=== PATIENT | male | born 1950 | race Caucasian/White ===

== ENCOUNTER 2024-01-12 05:29 | Emergency (ER) | payer OTHER ==
[2024-01-12 05:56] LABS: Absolute Eosinophils 0.2 K/uL (0-0.5); Absolute Lymphocytes (CBC) 3.5 K/uL (0.7-4.9); Absolute Monocytes 0.8 K/uL (0.1-1.3); Absolute Neutrophil 3.1 K/uL (1.8-8.0); Basophils % 0.4 % (0-1.3); Eosinophils % 2.1 % (0-4.4); Hematocrit 47.2 % (39.6-49.0); Hemoglobin 16.2 g/dL (13.6-17.9); Lymphocytes % 46.4 % (15.3-44.8); MCH 29.6 pg (27.0-35.0); MCHC 34.4 g/dL (32.0-36.0); MCV 86.2 fL (80-100); Monocytes % 10.7 % (3.3-12.3); Neutrophils % 40.4 % (41.7-73.7); Nucleated Red Blood Cells % 0.2 % (0-0); PT Prothrombin Time 15.4 SECONDS (9.4-12.5); Platelets 147 thou/uL (152-406); Protime INR 1.39; RBC Red Blood Cell Count 5.47 M/uL (4.33-5.43); Red Cell Distribution Width 13.8 % (12.1-15.2)
[2024-01-12] MEDS ORDERED: NA CHLORIDE 0.9% 1,000 ML ONE (06:11)
[2024-01-12 06:19] LABS: Albumin/Globulin Ratio 1.1 (1.1-1.8); Anion Gap 7.5 mEq/L (5.0-15.0); Bilirubin Direct 0.2 mg/dL (0-0.2); Bilirubin Indirect, Calculated 0.7 mg/dL (0.2-0.8); Bilirubin Total 0.9 mg/dL (0.2-1.0); Globulin 3.8 g/dL (2.3-3.5); Magnesium 2.1 mg/dL (1.6-2.4); Potassium 3.5 mEq/L (3.5-5.1); Protein, Total 7.8 g/dL (6.4-8.2); Troponin High Sensitivity 20.8 pg/mL (<58.9)
--- NOTE | 2024-01-12 06:27 | RAD REPORT ---
EXAM DESCRIPTION: Chest Single View CLINICAL HISTORY: CHEST PAIN COMPARISON: None. FINDINGS: 1 view(s) of the chest. Tubes and lines: Leads overlie the chest. Cardiomediastinal silhouette: Atherosclerotic calcification of thoracic aorta. Cardiomegaly. Lungs: No consolidation, pneumothorax, or pleural effusion. Low lung volumes. Bones: No acute osseous abnormality. Degenerative change of the spine and shoulders. Upper abdomen: No abnormality identified. IMPRESSION: 1. No acute pulmonary process identified. 2. Cardiomegaly. Electronically signed by: Imtiaz Hand DO 01/12/2024 06:07 AM [facility] [id number] Due to temporary technical issues with the PACS/[employer]vill[employer] reporting system, reports are being eryn d by the in-house radiologist without review as a courtesy to ensure prompt reporting the interpreting radiologist is fully responsible for the content of the report. Transcribed Date/Time: 01/12/2024 6:27 AM
--- NOTE | 2024-01-12 07:57 | RAD REPORT ---
EXAM: CT CHEST, ABDOMEN AND PELVIS WITH CONTRAST CLINICAL INDICATION: Male, 73 years old. CHEST PAIN TECHNIQUE: CT chest, abdomen, and pelvis was performed, following the administration of contrast, as per department protocol. Axial, sagittal and coronal reconstructions were obtained. One or more of the following dose reduction techniques were used: Automated exposure control, adjustment of the mA a nd/or kV according to patient size, and/or iterative reconstruction. Unless otherwise specified, incidental findings do not require dedicated imaging follow-up. COMPARISON: CT abdomen and pelvis 10/20/2020. FINDINGS: LUNGS AND AIRWAYS: No evidence of airspace or interstitial process. No nodules. Left thyroid lobe lower pole ill-defined multiple hypoattenuating 1.3 cm nodule. PLEURA: No pleural effusion. No pneumothorax. MEDIASTINUM AND LYMPH NODES: No mediastinal mass or fluid collection. Normal size mediastinal, hilar, and axillary lymph nodes. THORACIC AORTA: Normal caliber and configuration. PULMONARY ARTERIES: Normal caliber. OSSEOUS STRUCTURES AND CHEST WALL: Intact. LIVER: Normal in size and contour. No focal lesion or biliary dilitation. BILIARY SYSTEM: No suspicious abnormalities. PANCREAS: No mass, ductal dilation, or aryan-pancreatic fluid. Stable elongated cyst with marginal jurgen cifications rejecting caudally from the distal body of the pancreas, measuring 1.8 cm in greatest dimension. SPLEEN: Normal size. No focal lesion. ADRENALS: Normal; no mass. KIDNEYS AND URETERS: Normal size and contour. No hydronephrosis. Nonobstructing right upper to mid po le 2 mm calculus. URINARY BLADDER: No focal abnormalities apart from a stable right posterolateral wall diverticulum me asuring up to 2 cm at the base. GASTROINTESTINAL TRACT: No bowel obstruction, free air, significant free fluid or abscess. APPENDIX: Not well visualized, with no significant inflammatory changes around the base of the cecum. LYMPH NODES: No lymphadenopathy. ABDOMINAL AORTA AND OTHER VESSELS: Normal caliber aorta and IVC. MUSCULOSKELETAL: No acute or suspicious osseous abnormality. Moderate prostatomegaly. Fusiform aneurysmal dilation of the infrarenal abdominal aorta measuring 3.7 x 3.5 cm in greatest axial dimensions, not significantly changed. IMPRESSION: No acute findings. Incidentally noted nonobstructing 2 mm right upper to midpole renal calculus. Stable incidental findings as above, including the caudally projecting 1.8 cm marginally calcified di stal pancreatic body presumed cystic lesion, may represent a small postinflammatory/pseudocyst. Stable 3.7 cm fusiform infrarenal abdominal aortic aneurysm. 1.3 cm left thyroid lobe ill-defined nodule, can be further evaluated by dedicated thyroid ultrasound if not previously performed.
--- NOTE | 2024-01-12 08:30 | EDPHYS ---
Physician Documentation [facility] Name: Aditya Robins Age: 73 yrs Sex: Male : 1950 Arrival Date: 01/12/2024 Time: 05:29 Bed 5 Private MD: ED Physician Carlos Herrera HPI: 01/11 05:35 This 73 yrs old Male presents to ER via Unassigned with complaints of sp4 Irregular Pulse, Palpitations. 06:55 73-year-old male presents with complaint of palpitations. sp4 Historical: - Allergies: 05:55 No Known Allergies; bm8 - Home Meds: 05:55 losartan-hydrochlorothiazide 100-12.5 mg oral tablet 1 tab daily [Active]; nebivolol 20 bm8 mg oral tablet 1 tab daily [Active]; omeprazole 40 mg Oral capsule,delayed release (e.c.) [Active]; Xarelto 10 mg oral tablet 1 tab daily [Active]; - PMHx: 05:55 Hypertensive disorder; Diabetes mellitus; blood clots; Pancreatitis; bm8 - PSHx: 05:55 scalera buckle reversal Left; bm8 - Immunization history:: Adult Immunizations up to date. - Infectious Disease History:: Denies. - Social history:: Smoking status: Patient denies any tobacco usage or history of. Patient/guardian denies using alcohol, street drugs. - Family history:: not pertinent. ROS: 06:55 Constitutional: Negative for fever, chills, and weight loss, positive for palpitations sp4 06:55 All other systems are negative, Exam: 06:55 Constitutional: This is a well developed, well nourished patient who is awake, alert, sp4 and in no acute distress. Head/Face: Normocephalic, atraumatic. Eyes: Pupils equal round and reactive to light, extra-ocular motions intact. Lids and lashes normal. Conjunctiva and sclera are not injected. Cornea within normal limits. Periorbital areas with no swelling, redness, or edema. ENT: Nares patent. No nasal discharge, no septal abnormalities noted. Tympanic membranes are normal and external auditory canals are clear. Oropharynx with no redness, swelling, or masses, exudates, or evidence of obstruction, uvula midline. Mucous membranes moist. Neck: Trachea midline, no thyromegaly or masses palpated, and no cervical lymphadenopathy. Supple, full range of motion without nuchal rigidity, or vertebral point tenderness. Chest/axilla: Normal chest wall appearance and motion. Nontender with no deformity. No lesions are appreciated. Cardiovascular: Regular rate and rhythm with a normal S1 and S2. No gallops, murmurs, or rubs. Normal PMI, no JVD. No pulse deficits. Respiratory: Lungs have equal breath sounds bilaterally, clear to auscultation and percussion. No rales, rhonchi or wheezes noted. No increased work of breathing, no retractions or nasal flaring. Abdomen/GI: Soft, with normal bowel sounds. No distension or tympany. No guarding or rebound. No evidence of tenderness throughout. Back: No spinal tenderness. No costovertebral tenderness. Skin: Warm, dry with normal turgor. Normal color with no rashes, no lesions, and no evidence of cellulitis. MS/ Extremity: Pulses equal, no cyanosis. Neurovascular intact. Full, normal range of motion. Neuro: Awake and alert, GCS 15, oriented to person, place, time, and situation. Cranial nerves II-XII grossly intact. Motor strength 5/5 in all extremities. Sensory grossly intact. Psych: Awake, alert, with orientation to person, place and time. Behavior, mood, and affect are within normal limits 06:55 ECG was reviewed by the Attending Physician. Initial EKG 0 536 atrial fibrillation with RVR rate 114. Vital Signs: 05:34 BP 145 / 97; Pulse 95; Resp 16; Temp 97.8; Pulse Ox 98% ; Weight 120.2 kg; Height 5 ft. bm8 10 in. ; Pain 1/10; 06:00 BP 158 / 82; Pulse 62; Resp 12; Temp 97.8; Pulse Ox 98% ; Pain 1/10; bm8 07:31 BP 132 / 80; Pulse 62; Resp 18; Pulse Ox 100% on R/A; ph 08:15 BP 161 / 88; Pulse 57; Resp 18; Pulse Ox 98% on R/A; ph 09:01 BP 144 / 91; Pulse 58; Resp 18; Temp 97.9; Pulse Ox 98% on R/A; ph 05:34 Body Mass Index 38.02 (120.20 kg, 177.8 cm) bm8 05:34 Pain Scale: Adult bm8 06:00 Pain Scale: Adult bm8 [place] Coma Score: 06:00 Eye Response: spontaneous(4). Motor Response: obeys commands(6). Verbal Response: bm8 oriented(5). Total: 15. MDM: 06:57 Differential diagnosis: arrythmia, dehydration, stress disorder. Data reviewed: vital sp4 signs, nurses notes, old medical records, lab test result(s), EKG, radiologic studies, CT scan, plain films. ED course: EXAM DESCRIPTION: Chest Single View CLINICAL HISTORY: CHEST PAIN COMPARISON: None. FINDINGS: 1 view(s) of the chest. Tubes and lines: Leads overlie the chest. Cardiomediastinal silhouette: Atherosclerotic calcification of thoracic aorta. Cardiomegaly. Lungs: No consolidation, pneumothorax, or pleural effusion. Low lung volumes. Bones: No acute osseous abnormality. Degenerative change of the spine and shoulders. Upper abdomen: No abnormality identified. IMPRESSION: 1. No acute pulmonary process identified. 2. Cardiomegaly. . 07:31 Medical Screening Exam initiated sp4 08:22 ED course: IMPRESSION: No acute findings. Incidentally noted nonobstructing 2 mm right sp4 upper to midpole renal calculus. Stable incidental findings as above, including the caudally projecting 1.8 cm marginally calcified distal pancreatic body presumed cystic lesion, may represent a small postinflammatory/pseudocyst. Stable 3.7 cm fusiform infrarenal abdominal aortic aneurysm. 1.3 cm left thyroid lobe ill-defined nodule, can be further evaluated by dedicated thyroid ultrasound if not previously performed. . 01/11 05:35 Order name: Basic Metabolic Panel; Complete Time: 06:52 sp4 01/11 05:35 Order name: CBC with Diff; Complete Time: 06:03 sp4 01/11 05:35 Order name: LFT's; Complete Time: 06:52 sp4 01/11 05:35 Order name: Magnesium; Complete Time: 06:52 sp4 01/11 05:35 Order name: NT PRO-BNP; Complete Time: 06:52 sp4 01/11 05:35 Order name: PT-INR; Complete Time: 06:03 sp4 01/11 05:35 Order name: Troponin HS; Complete Time: 06:52 sp4 01/11 05:35 Order name: XRAY Chest (1 view); Complete Time: 06:52 sp4 01/11 06:03 Order name: CT Chest, Abdomen, Pelvis - W/Contrast; Complete Time: 08:22 sp4 01/11 06:04 Order name: EKG; Complete Time: 06:04 sp4 01/11 05:35 Order name: Cardiac monitoring; Complete Time: 05:44 sp4 01/11 05:35 Order name: EKG - Nurse/Tech; Complete Time: 05:44 sp4 01/11 05:35 Order name: IV Saline Lock; Complete Time: 05:44 sp4 01/11 05:35 Order name: Labs collected and sent; Complete Time: 05:44 sp4 01/11 05:35 Order name: O2 Per Protocol; Complete Time: 05:44 sp4 01/11 05:35 Order name: O2 Sat Monitoring; Complete Time: 05:44 sp4 EC:55 Rate is 114 beats/min. Rhythm is irregularly irregular, A fib with Rapid ventricular sp4 response. QRS Given is Normal. QRS interval is normal. QT interval is normal. No Q waves. T waves are Normal. No ST changes noted. Clinical impression: No evidence of ischemia. Interpreted by me. Reviewed by me. Administered Medications: 05:45 Not Given (Physician Discretion): ns 0.45 % with kcl20 meq/l 1000 ml IV at 125 ml/hr sp4 once 06:03 CANCELLED (Physician Discretion): mg IVP once; Over 2 minutes sp4 06:15 Drug: NS 0.9% IV 1000 ml IV at 125 ml/hr continuous Route: IV; Rate: 125 ml/hr; Site: bm8 right antecubital; 09:00 Follow up: Response: No adverse reaction; IV Status: Completed infusion; IV Intake: ph 375ml Disposition Summary: 01/12/24 08:30 Discharge Ordered Problem: new sp4 Symptoms: have improved sp4 Condition: Stable sp4 Diagnosis - Paroxysmal atrial fibrillation sp4 - Nontoxic single thyroid nodule sp4 - Stable infrarenal aortic aneurysm sp4 Followup: sp4 - With: Fran Melton MD - When: 5 - 6 days - Reason: Recheck today's complaints Discharge Instructions: - Discharge Summary Sheet sp4 - Atrial Fibrillation, Thah-cu-Bbol sp4 Forms: - Patient Portal Instructions sp4 Prescriptions: - Xarelto 20 mg Oral tablet - take 1 tablet ORAL route once daily for 30 days; 30 tablet; Refills: 0, Product sp4 Selection Permitted Signatures: Dispatcher [employer] EDCarlos Bronson MD MD sp4 Ras Styles RN RN bm8 Marii Lee RN ph Corrections: (The following items were deleted from the chart) 05:36 05:36 BASIC METABOLIC PANEL+C.LAB.BRZ ordered. EDMS EDMS 05:36 05:36 CBC+H.LAB.BRZ ordered. EDMS EDMS 05:36 05:36 HEPATIC FUNCTION+C.LAB.BRZ ordered. EDMS EDMS 05:36 05:36 MAGNESIUM+C.LAB.BRZ ordered. EDMS EDMS 05:36 05:36 PROBNP+C.LAB.BRZ ordered. EDMS EDMS 05:36 05:36 PROTIME (+INR)+COAG.LAB.BRZ ordered. EDMS EDMS 05:36 05:36 Troponin High Sensitivity+C.LAB.BRZ ordered. EDMS EDMS 05:36 05:36 Chest Single View+RAD.RAD.BRZ ordered. EDMS EDMS 06:03 05:44 Diltiazem IVP 20 mg IVP once; Over 2 minutes ordered. sp4 sp4
--- NOTE | 2024-01-12 08:30 | ER ---
Nurse's Notes [facility] Name: Aditya Robins Age: 73 yrs Sex: Male : 1950 Arrival Date: 01/12/2024 Time: 05:29 Bed 5 Private MD: Diagnosis: Paroxysmal atrial fibrillation;Nontoxic single thyroid nodule;Stable infrarenal aortic aneurysm Presentation: 01/11 05:34 Chief complaint: Patient states: i woke up this morning feeling like my heart rate was bm8 faster than it should be and it was skipping beats. Coronavirus screen: Vaccine status: Patient reports receiving the 2nd dose of the covid vaccine. Ebola Screen: Patient negative for fever greater than or equal to 101.5 degrees Fahrenheit, and additional compatible Ebola Virus Disease symptoms Patient denies exposure to infectious person. Patient denies travel to an Ebola-affected area in the 21 days before illness onset. No symptoms or risks identified at this time. 05:34 Method Of Arrival: Ambulatory bm8 05:34 Initial Sepsis Screen: Does the patient meet any 2 criteria? No. Patient's initial bm8 sepsis screen is negative. Does the patient have a suspected source of infection? No. Patient's initial sepsis screen is negative. Risk Assessment: Do you want to hurt yourself or someone else? Patient reports no desire to harm self or others. Onset of symptoms was January 12, 2024 at 05:00. 05:34 Acuity: CAMMY 2 bm8 Triage Assessment: 05:55 General: Appears in no apparent distress. comfortable, Behavior is calm, cooperative, bm8 appropriate for age. Pain: Complains of pain in epigastric area Pain currently is 1 out of 10 on a pain scale. Quality of pain is described as aching. EENT: No deficits noted. No signs and/or symptoms were reported regarding the EENT system. Neuro: No deficits noted. Level of Consciousness is awake, alert, obeys commands, Oriented to person, place, time, situation, Appropriate for age. Cardiovascular: Reports palpitations, "rapid heart rate" Denies chest pain, Heart tones S1 S2 present Capillary refill < 3 seconds in bilateral fingers Patient's skin is warm and dry. Respiratory: Airway is patent Respiratory effort is even, unlabored, Respiratory pattern is regular, symmetrical, Breath sounds are clear bilaterally. GI: Abdomen is round distended, Bowel sounds present X 4 quads. Reports epigastric pain, Pain is 1 out of 10 on a pain scale. : No signs and/or symptoms were reported regarding the genitourinary system. Derm: No signs and/or symptoms reported regarding the dermatologic system. Musculoskeletal: No signs and/or symptoms reported regarding the musculoskeletal system. Historical: - Allergies: 05:55 No Known Allergies; bm8 - Home Meds: 05:55 losartan-hydrochlorothiazide 100-12.5 mg oral tablet 1 tab daily [Active]; nebivolol 20 bm8 mg oral tablet 1 tab daily [Active]; omeprazole 40 mg Oral capsule,delayed release (e.c.) [Active]; Xarelto 10 mg oral tablet 1 tab daily [Active]; - PMHx: 05:55 Hypertensive disorder; Diabetes mellitus; blood clots; Pancreatitis; bm8 - PSHx: 05:55 scalera buckle reversal Left; bm8 - Immunization history:: Adult Immunizations up to date. - Infectious Disease History:: Denies. - Social history:: Smoking status: Patient denies any tobacco usage or history of. Patient/guardian denies using alcohol, street drugs. - Family history:: not pertinent. Screenin:00 [facility] ED Fall Risk Assessment (Adult) History of falling in the last 3 months, bm8 including since admission No falls in past 3 months (0 pts) Confusion or Disorientation No (0 pts) Intoxicated or Sedated No (0 pts) Impaired Gait No (0 pts) Mobility Assist Device Used No (0 pt) Altered Elimination No (0 pt) Score/Fall Risk Level 0 - 2 = Low Risk Oriented to surroundings, Maintained a safe environment, Educated pt \\T\\ family on fall prevention, incl call for assistance when getting out of bed, Assessed \\T\\ reinforced patient's understanding of fall precautions, Hourly rounding (assess needs \\T\\ fall precautionary measures) done, Used ambulatory aids as needed (educated on \\T\\ assisted with), Used gait belt as appropriate. Abuse screen: Denies threats or abuse. Nutritional screening: No deficits noted. Tuberculosis screening: No symptoms or risk factors identified. Assessment: 06:00 Reassessment: see triage assessment. bm8 07:30 Reassessment: Patient appears in no apparent distress at this time. Patient and/or ph family updated on plan of care and expected duration. Pain level reassessed. Patient is alert, oriented x 3, equal unlabored respirations, skin warm/dry/pink. Patient denies pain at this time. Vital Signs: 05:34 BP 145 / 97; Pulse 95; Resp 16; Temp 97.8; Pulse Ox 98% ; Weight 120.2 kg; Height 5 ft. bm8 10 in. ; Pain 1/10; 06:00 BP 158 / 82; Pulse 62; Resp 12; Temp 97.8; Pulse Ox 98% ; Pain 1/10; bm8 07:31 BP 132 / 80; Pulse 62; Resp 18; Pulse Ox 100% on R/A; ph 08:15 BP 161 / 88; Pulse 57; Resp 18; Pulse Ox 98% on R/A; ph 09:01 BP 144 / 91; Pulse 58; Resp 18; Temp 97.9; Pulse Ox 98% on R/A; ph 05:34 Body Mass Index 38.02 (120.20 kg, 177.8 cm) bm8 05:34 Pain Scale: Adult bm8 06:00 Pain Scale: Adult bm8 Vitals: 07:31 Cardiac Rhythm Assessment Sinus rhythm. ph [place] Coma Score: 06:00 Eye Response: spontaneous(4). Motor Response: obeys commands(6). Verbal Response: bm8 oriented(5). Total: 15. ED Course: 05:31 Patient arrived in ED. [id number] 05:35 Carlos Herrera MD is Attending Physician. sp4 05:38 EKG done, by ED staff, reviewed by Carlos Herrera MD. ty 05:40 Inserted saline lock: 20 gauge in right antecubital area, using aseptic technique. ty Blood collected. Flushed with 10 mL NS. 05:44 Basic Metabolic Panel Sent. ty 05:47 Ras Styles, RN is Primary Nurse. bm8 05:55 Triage completed. bm8 05:55 Arm band placed on right wrist. bm8 05:57 XRAY Chest (1 view) In Process Unspecified. EDMS 06:00 No provider procedures requiring assistance completed. Patient maintains SpO2 bm8 saturation greater than 95% on room air. 06:00 Patient has correct armband on for positive identification. Placed in gown. Bed in low bm8 position. Call light in reach. Side rails up X 1. Adult w/ patient. Client placed on continuous cardiac and pulse oximetry monitoring. NIBP monitoring applied. shelter monitor on. Pulse ox on. NIBP on. Door closed. Noise minimized. Warm blanket given. Pillow given. Verbal reassurance given. Head of bed elevated. 07:13 CT Chest, Abdomen, Pelvis - W/Contrast In Process Unspecified. EDCA 08:29 Fran Melton MD is Referral Physician. sp4 09:01 IV discontinued, intact, bleeding controlled, No redness/swelling at site. Pressure ph dressing applied. Administered Medications: 05:45 Not Given (Physician Discretion): ns 0.45 % with kcl20 meq/l 1000 ml IV at 125 ml/hr sp4 once 06:03 CANCELLED (Physician Discretion): [id number] mg IVP once; Over 2 minutes sp4 06:15 Drug: NS 0.9% IV 1000 ml IV at 125 ml/hr continuous Route: IV; Rate: 125 ml/hr; Site: [facility] right antecubital; 09:00 Follow up: Response: No adverse reaction; IV Status: Completed infusion; IV Intake: ph 375ml Medication: 06:00 VIS not applicable for this client. bm8 Intake: 09:00 IV: 375ml; Total: 375ml. ph Outcome: 08:30 Discharge ordered by . sp4 09:01 Discharged to home ambulatory, with significant other, ph 09:01 Condition: good 09:01 Discharge instructions given to patient, Instructed on discharge instructions, follow up and referral plans. medication usage, Demonstrated understanding of instructions, follow-up care, medications, Prescriptions given X 1, 09:02 Patient left the ED. ph Signatures: Dispatcher [employer] EDCA Marii Lee, RN RN ph Fanny Mathews Sergey, MD MD sp4 Abhijit Jimenez Brad RN RN bm8
[2024-01-12 09:12] VITALS: O2SAT 98
[2024-01-12 09:13] VITALS: BP 144/91; TEMP 97.9
--- NOTE | 2024-01-16 12:10 | EKG ---
Test Date: 2024-01-12 Test Time: 06:08:03 Cofounder: FADY MEASUREMENT RESULTS: Intervals: Rate: 62 [place]: 230 QRSD: 94 QT: 414 QTc: 420 [place]: P: 34 [place]: 230 QRS: -47 T: 64 INTERPRETIVE STATEMENTS: Sinus rhythm with 1st degree AV block Left axis deviation Abnormal ECG No previous ECG available for comparison Electronically Signed On 01-16-24 12:04:12 GENERATION MECHANIC HELPER by Romulo Santillan
--- NOTE | 2024-01-16 12:10 | EKG ---
Test Date: 2024-01-12 Test Time: 05:36:25 Office Messenger: FADY MEASUREMENT RESULTS: Intervals: Rate: 114 [place]: QRSD: 90 QT: 332 QTc: 457 [place]: P: [place]: QRS: 230 T: 67 INTERPRETIVE STATEMENTS: Atrial fibrillation Abnormal ECG No previous ECG available for comparison Electronically Signed On 01-16-24 12:04:15 MUSIC JOURNALIST by Romulo Santillan
== END 2024-01-12 09:02 | disposition home or self-care (01) ==
LOC: ER 05:29
DX: I48.0 Paroxysmal atrial fibrillation (principal); E04.1 Nontoxic single thyroid nodule; I71.43 Infrarenal abdominal aortic aneurysm, without rupture; E11.9 Type 2 diabetes mellitus without complications; I10 Essential (primary) hypertension; Z79.01 Long term (current) use of anticoagulants
CPT/HCPCS: 96361; 85025; 80048; 36415; 83735; 85610; 80076; 84484; 83880; 71260; 74177; 71045; 96360; 99285; Q9967; J7030; 93005